=== PATIENT | male | born 1970 | race Caucasian/White ===

== ENCOUNTER → 2022-03-31 12:38 | Outpatient (BNVA) | payer BC, MEDICAID, SELFPAY | PROVIDERS: Family Provider General Practice; Visit Provider Registered Nurse Neonatal Intensive Care | DX: J02.9 Acute pharyngitis, unspecified (principal) | CPT/HCPCS: 87071; 87880 ==

== ENCOUNTER → 2022-05-22 09:51 | Outpatient (BNVA) | payer BC, MEDICAID, SELFPAY | PROVIDERS: Family Provider General Practice; PCP Family Medicine; Visit Provider Family Medicine | DX: E03.9 Hypothyroidism, unspecified (principal); I10 Essential (primary) hypertension | CPT/HCPCS: 80053; 80061; 84439; 84443; 85025 ==

== ENCOUNTER → 2024-05-31 16:19 | Outpatient (BNVA) | payer BC, SELFPAY | PROVIDERS: Family Provider General Practice; PCP Family Medicine | DX: R50.9 Fever, unspecified (principal) | CPT/HCPCS: 87400 ==